=== PATIENT | female | born 1990 | race Caucasian/White ===

== ENCOUNTER 2016-07-04 09:49 | Emergency (ER) | payer OTHER ==
[~2016-07-04] VITALS: Ht 162.6 cm; Wt 88.5 kg
[2016-07-04 09:49] VITALS: BP 137/73
[2016-07-04] MEDS ORDERED: FLUT1SPR2 (09:58)
[2016-07-04] MEDS ORDERED: FLUO1TAB3 (09:58)
[2016-07-04] MEDS ORDERED: EXCETAB80 PO (09:58)
[2016-07-04] MEDS ORDERED: LIDOCAINE VISCOUS 2% SOLN 15ML UDC MT ONE (10:15)
[2016-07-04] MEDS ORDERED: AMOX875T PO (10:18)
[2016-07-04] MEDS ORDERED: ACET30TAB PO (10:18)
== END 2016-07-04 10:25 | disposition home or self-care (01) ==
LOC: M ED 10:08
DX: K08.89 Other specified disorders of teeth and supporting structures (principal)

== ENCOUNTER 2016-10-10 21:16 | Emergency (ER) | payer OTHER ==
[~2016-10-10] VITALS: Ht 162.6 cm; Wt 83.8 kg
[~2016-10-10 21:16] MED LIST: ACET30TAB PO; AMOX875T PO; EXCETAB80 PO; FLUO1TAB3 PO; FLUT1SPR2
[2016-10-10] MEDS ORDERED: NORCO, ANEXSIA 5/325MG TABLET (HYDROcodone/ACETAMINOPHEN) PO ONE (22:00)
[2016-10-10] MEDS ORDERED: BACITRACIN OINT 30GM TOP STA (22:04)
--- NOTE | 2016-10-10 23:00 | REPUSA ---
CT of the head Clinical history: Trauma. Technique: Multiple axial CT images were obtained through the head without administration of contrast . Findings: The ventricles and sulci are symmetric bilaterally. There is no evidence of acute hemorrhag e or infarct. There is no midline shift, mass effect, or extra-axial fluid collection. The osseous st ructures are unremarkable. The visualized paranasal sinuses and mastoid air cells are clear. Impression: Negative study.
--- NOTE | 2016-10-10 23:01 | REPUSA ---
CT of the facial bones Clinical history: pain, injury. Comparison: none. Technique: Multiple axial CT images were obtained through the facial bones and paranasal sinuses util izing 3 mm axial slices without administration of contrast. Coronal and sagittal reconstructions were also obtained. Findings: There is an acute oblique nondisplaced fracture of the proximal left mandible, below the ma ndibular head. No evidence of angulation or displacement is noted. The visualized paranasal sinuses a re clear. The osteomeatal complexes are patent bilaterally. The nasal septum is midline. The visualiz ed mastoid air cells are clear.The superficial soft tissues are inflamed and swollen in the right max illary region. Impression: 1. Acute nondisplaced fracture of the proximal left mandible as described. No evidence of angulation or displacement. The temporomandibular joints are grossly intact. 2. Inflammation and superficial soft tissue swelling in the right maxillary region.
[2016-10-10] MEDS ORDERED: HYDR-3713 PO (23:18)
[2016-10-10 23:25] VITALS: BP 111/57
== END 2016-10-10 23:25 | disposition home or self-care (01) ==
LOC: M ED 22:07
DX: S02.609A Fracture of mandible, unspecified, initial encounter for closed fracture (principal); T14.8 Other injury of unspecified body region; V19.9XXA Pedal cyclist (driver) (passenger) injured in unspecified traffic accident, initial encounter; Y92.89 Other specified places as the place of occurrence of the external cause; Y93.55 Activity, bike riding; Y99.8 Other external cause status; F17.210 Nicotine dependence, cigarettes, uncomplicated; F99 Mental disorder, not otherwise specified

== ENCOUNTER 2016-12-31 07:32 | Day surgery (SDC) | payer OTHER ==
[~2016-12-31] VITALS: Ht 162.6 cm; Wt 81.6 kg
[~2016-12-31 07:32] MED LIST changes: +HYDR-3713 PO
[2016-12-31] MEDS ORDERED: LR 1,000 ML IV ONE (08:00)
[2016-12-31 08:09] LABS: CONTROL LINE UCG INT CTR LINE PRESENT
[2016-12-31] MEDS ORDERED: fentaNYL 100 MCG/2 ML INJECTION (J3010) As Ordered ONE (08:39)
[2016-12-31] MEDS ORDERED: MIDAZOLAM INJ 2 MG/2 ML VIAL (J2250) As Ordered ONE (08:39)
[2016-12-31] MEDS ORDERED: PROPOFOL 200 MG/20 ML VIAL As Ordered ONE (08:39)
[2016-12-31] MEDS ORDERED: CHLOROPROCAINE 2 % INJ PRES.FREE 20 ML VIAL (J2400) As Ordered ONE (08:39)
[2016-12-31] MEDS ORDERED: METOCLOPRAMIDE INJ 10MG/2ML VIAL (J2765) IV PRN (09:15)
[2016-12-31] MEDS ORDERED: PERCOCET 5MG/325MG TAB PO PRN (09:15)
[2016-12-31] MEDS ORDERED: NORCO, ANEXSIA 5/325MG TABLET (HYDROcodone/ACETAMINOPHEN) PO PRN (09:15)
[2016-12-31] MEDS ORDERED: fentaNYL 100 MCG/2 ML INJECTION (J3010) IV PRN (09:15)
[2016-12-31] MEDS ORDERED: MEPERIDINE INJ 25 MG/ML VIAL (J2175) IV PRN (09:15)
[2016-12-31] MEDS ORDERED: ONDANSETRON 4MG/2ML VIAL (J2405) IV PRN (09:15)
[2016-12-31] MEDS ORDERED: LR 1,000 ML IV SCH (09:15)
[2016-12-31 10:45] VITALS: BP 117/61
--- NOTE | 2016-12-31 11:27 | RO ---
DATE OF PROCEDURE: 12/31/2016 PREOPERATIVE DIAGNOSIS: Pilonidal cyst. POSTOPERATIVE DIAGNOSIS: Pilonidal cyst. PROCEDURE: Pilonidal cystectomy. SURGEON: Feliciano Latham DO [employer]PER: None. ANESTHESIA: General. ESTIMATED BLOOD LOSS: 5 mL. COMPLICATIONS: None. INDICATION FOR PROCEDURE: Patient is a 26-year-old female who presents with persistent lump on her pilonidal area with concerns for a pilonidal cyst. Recommendation was to proceed pilonidal cystectomy. Risks and benefits of the procedure not limited to, but including, bleeding, infection, damage to surrounding structures and need for further surgery were discussed in detail with the patient. Informed consent was obtained and procedure was planned. DESCRIPTION OF SURGERY: Patient brought back to operating room three after spinal sedation. She was placed in a prone position. The perineal area and posterior lower back were sterilely prepped and draped with Betadine. Next, a time out was done to confirm proper patient and proper procedure. Following that, an elliptical incision using a 15 blade scalpel was used around the presacral area encompassing the sinus tracts in the midline. This incision was carried down to the presacral fascia using electrocautery circumferentially. The cyst and sinus tracts were all removed all as one specimen. Once they removed, the wound bed was cauterized carefully to control any bleeding. Once all bleeding was controlled, the wound was irrigated with saline. Any residual bleeding was controlled with electrocautery. The wound bed was then dried, was packed with 4x4s and covered tape thus ending the procedure.
== END 2016-12-31 11:24 | disposition home or self-care (01) ==
LOC: M SDC 07:32
PROVIDERS: ATTEND Surgery
DX: L05.92 Pilonidal sinus without abscess (principal); F32.9 Major depressive disorder, single episode, unspecified; F41.9 Anxiety disorder, unspecified; G43.909 Migraine, unspecified, not intractable, without status migrainosus; Z72.0 Tobacco use
CPT/HCPCS: 11770; 84703; 88304; J0690; J2250; J2400; J3010

== ENCOUNTER → 2017-04-28 | Outpatient (REF) | payer OTHER ==
[2017-04-28 19:35] LABS: CHLAMYDIA DNA AMPLIFICATION NEGATIVE (NEGATIVE); GC DNA AMPLIFICATION NEGATIVE (NEGATIVE)
== END ==
LOC: M SFHCLERA 14:24
DX: N89.8 Other specified noninflammatory disorders of vagina (principal)

== ENCOUNTER → 2017-07-14 | Outpatient (REF) | payer OTHER | LOC: M SFHCLERA 12:04 | DX: J02.9 Acute pharyngitis, unspecified (principal) ==